=== PATIENT | female | born 1980 | race African-American/Black ===

== ENCOUNTER 2019-03-11 18:12 | Inpatient (IN) ==
[2019-03-11] MEDS ORDERED: LACTATED RINGERS 1,000 ML IV ONE (18:29)
[2019-03-11] MEDS ORDERED: cefTRIAXone 1,000 MG in SODIUM CHLORIDE 0.9% 100 ML IV STA (18:29)
[2019-03-11 19:33] LABS: Albumin 3.6 G/DL (3.4-5.0); Bilirubin,Total 0.4 MG/DL (0.2-1.0); Calcium 8.5 MG/DL (8.5-10.1); Osmolality,Calculated 274.5 MOS/KG (273-304); Total Protein 7.9 G/DL (6.4-8.3)
[2019-03-11 19:38] LABS: Basophils # 0.1 10*3/uL (0.0-0.2); Basophils % 0.6 % (0.0-0.8); Eosinophils # 0.4 10*3/uL (0.0-0.87); Eosinophils % 2.8 % (0.00-10.9); Immature Granulocytes % 0.3 %; Immature Granulocytes Absolute 0.04 #; Lymphocytes # 1.3 10*3/uL (1.4-4.0); Lymphocytes % 10.2 % (21.3-54.2); Mean Corpuscular HGB Conc 28.4 GM/DL (32-36); Mean Corpuscular Volume 75.2 FL (87-102); Monocytes % 7.6 % (1.7-12.7); Neutrophils % 78.5 % (38.7-73.9); Red Blood Count 4.12 MC/CUMM (3.8-5.5); Red Cell Distribution Width 21.2 % (9.3-17.3)
[2019-03-11 19:39] LABS: Hemoglobin 8.8 GM/DL (12.0-16.0); Platelet Count 1007 T/CUMM (130-400)
[2019-03-11 19:41] LABS: Apearance,Urine CLEAR (Clear); Bilirubin,Urine Negative (Negative); Blood, Urine Negative (Negative); Glucose,Urine (UA) Negative (Negative); Ketones,Urine Negative (Negative); Mucus,Urine Few /LPF (Occasional); Nitrite,Urine Negative (Negative); Protein,Urine Negative; RBC,Urine 2 /HPF (0-4); Squamous Epithelial Cell,Urine Occasional /HPF (0-10); Urine Color Yellow (Yellow); Urine Specific Gravity 1.021 (1.001-1.035); WBC,Urine 1 /HPF (0-6)
[2019-03-11 21:05] LABS: Basophils # 0.1 10*3/uL (0.0-0.2); Basophils % 0.5 % (0.0-0.8); Eosinophils # 0.3 10*3/uL (0.0-0.87); Eosinophils % 2.7 % (0.00-10.9); Immature Granulocytes % 0.2 %; Immature Granulocytes Absolute 0.03 #; Lymphocytes # 1.3 10*3/uL (1.4-4.0); Lymphocytes % 10.5 % (21.3-54.2); Mean Corpuscular HGB Conc 28.6 GM/DL (32-36); Mean Corpuscular Volume 75.5 FL (87-102); Mean Platelet Volume 9.9 FL (9.6-12.0); Monocytes % 8.3 % (1.7-12.7); Neutrophils % 77.8 % (38.7-73.9); Platelet Count 905 T/CUMM (130-400); Red Blood Count 3.71 MC/CUMM (3.8-5.5); Red Cell Distribution Width 20.9 % (9.3-17.3); White Blood Count 12.4 T/CUMM (4-12)
[2019-03-11] MEDS ORDERED: ONDANSETRON 4 MG/2 ML VIAL IV PRN (21:12)
[2019-03-11] MEDS ORDERED: ACETAMINOPHEN 500 MG TABLET PO STA (21:16)
[2019-03-11] MEDS: ENOXAPARIN 40 MG/0.4 ML SYRINGE SUBCUT SCH (22:56)
[2019-03-11] MEDS: SODIUM CHLORIDE 0.9% 1,000 ML IV SCH (22:57)
[2019-03-11] MEDS: cefTRIAXone 1,000 MG in SYRINGE 1 EACH IV SCH (23:04)
[2019-03-12] MEDS: ALBUTEROL/IPRATROPIUM 3 ML NEB RESP TX SCH ×3 (00:30→14:43)
[2019-03-12] MEDS: SODIUM CHLORIDE 0.9% 1,000 ML IV SCH ×3 (05:24→23:12)
[2019-03-12] MEDS: PANTOPRAZOLE 40 MG TABLET PO SCH (08:31)
[2019-03-12 09:18] LABS: % Iron Saturation 2.2 % (18-50)
[2019-03-12 09:38] LABS: Basophils # 0.1 10*3/uL (0.0-0.2); Basophils % 0.7 % (0.0-0.8); Eosinophils # 0.3 10*3/uL (0.0-0.87); Eosinophils % 4.4 % (0.00-10.9); Hematocrit 27.8 VOL% (35.7-47.0); Immature Granulocytes % 0.4 %; Immature Granulocytes Absolute 0.03 #; Lymphocytes # 1.2 10*3/uL (1.4-4.0); Lymphocytes % 15.6 % (21.3-54.2); Mean Corpuscular HGB Conc 28.4 GM/DL (32-36); Mean Corpuscular Volume 75.3 FL (87-102); Mean Platelet Volume 9.7 FL (9.6-12.0); Monocytes % 10.6 % (1.7-12.7); Neutrophils % 68.3 % (38.7-73.9); Platelet Count 832 T/CUMM (130-400); Red Blood Count 3.69 MC/CUMM (3.8-5.5); White Blood Count 7.7 T/CUMM (4-12)
[2019-03-12 09:43] LABS: Hemoglobin 7.9 GM/DL (12.0-16.0)
[2019-03-12 09:56] LABS: Hypochromasia 2+; Ovalocytes Slight; Platelet Estimate Increased
[2019-03-12] MEDS: PSEUDOEPHEDRINE 30 MG TABLET PO SCH ×3 (10:07→22:38)
[2019-03-12] MEDS: methylPREDNISolone SOD SUC 40 MG/1 ML VIAL IV SCH ×2 (10:07→16:35)
[2019-03-12] MEDS: FLUTICASONE 50 MCG NASAL SPRAY 16 GM BOTTLE BOTH NARES SCH ×2 (10:07→22:38)
[2019-03-12] MEDS ORDERED: NICOTINE 21 MG/24 HR PATCH TRANSDERM PRN (11:07)
[2019-03-12] MEDS ORDERED: LEVOFLOXACIN 750 MG TABLET PO SCH (11:30)
[2019-03-12] MEDS: CETIRIZINE 10 MG TABLET PO SCH (11:47)
[2019-03-12] MEDS: ASPIRIN EC 81 MG TABLET PO SCH (11:47)
[2019-03-12] MEDS: FERROUS SULFATE 325 MG TABLET PO SCH (22:38)
[2019-03-12] MEDS: ENOXAPARIN 40 MG/0.4 ML SYRINGE SUBCUT SCH (22:58)
[2019-03-12] MEDS: cefTRIAXone 1,000 MG in SYRINGE 1 EACH IV SCH (23:04)
[2019-03-13] MEDS: methylPREDNISolone SOD SUC 40 MG/1 ML VIAL IV SCH ×2 (01:40→16:58)
[2019-03-13] MEDS: PSEUDOEPHEDRINE 30 MG TABLET PO SCH ×4 (04:37→20:50)
[2019-03-13] MEDS: ALBUTEROL/IPRATROPIUM 3 ML NEB RESP TX SCH ×3 (07:13→19:35)
[2019-03-13 09:17] LABS: Basophils % 0.1 % (0.0-0.8); Eosinophils % 0.1 % (0.00-10.9); Hematocrit 27.5 VOL% (35.7-47.0); Immature Granulocytes Absolute 0.16 #; Lymphocytes % 12.5 % (21.3-54.2); Mean Corpuscular HGB Conc 28.4 GM/DL (32-36); Mean Corpuscular Volume 76.4 FL (87-102); Mean Platelet Volume 9.8 FL (9.6-12.0); Monocytes % 4.6 % (1.7-12.7); NRBC # 0.03 10*3/uL; Neutrophils % 80.7 % (38.7-73.9); Platelet Count 804 T/CUMM (130-400); White Blood Count 7.9 T/CUMM (4-12)
[2019-03-13 09:20] LABS: Hemoglobin 7.8 GM/DL (12.0-16.0)
[2019-03-13 09:22] LABS: Hypochromasia 2+; Microcytosis 1+; Tear Drop Cells Slight
[2019-03-13 09:23] LABS: Platelet Estimate Increased; Polychromasia Slight
[2019-03-13] MEDS: CETIRIZINE 10 MG TABLET PO SCH (10:35)
[2019-03-13] MEDS: FERROUS SULFATE 325 MG TABLET PO SCH (10:35)
[2019-03-13] MEDS: PANTOPRAZOLE 40 MG TABLET PO SCH (10:35)
[2019-03-13] MEDS: ASPIRIN EC 81 MG TABLET PO SCH (10:36)
[2019-03-13] MEDS: FLUTICASONE 50 MCG NASAL SPRAY 16 GM BOTTLE BOTH NARES SCH ×2 (10:36→20:51)
[2019-03-13] MEDS: LEVOFLOXACIN INJ 750 MG in PREMIX 1 EACH IV SCH (15:36)
[2019-03-13] MEDS: SODIUM CHLORIDE 0.9% 1,000 ML IV SCH (16:59)
[2019-03-13] MEDS: IRON SUCROSE 200 MG in SODIUM CHLORIDE 0.9% 100 ML IV SCH (18:42)
[2019-03-13] MEDS: ENOXAPARIN 40 MG/0.4 ML SYRINGE SUBCUT SCH (20:50)
[2019-03-13] MEDS ORDERED: methylPREDNISolone SOD SUC 40 MG/1 ML VIAL IV SCH (21:00)
[2019-03-13] MEDS: methylPREDNISolone SOD SUC 40 MG/1 ML VIAL IM SCH (21:51)
[2019-03-14] MEDS: ALBUTEROL/IPRATROPIUM 3 ML NEB RESP TX SCH ×2 (00:52→07:01)
[2019-03-14] MEDS: PSEUDOEPHEDRINE 30 MG TABLET PO SCH ×2 (03:22→09:05)
[2019-03-14 07:21] VITALS: BP 118/77
[2019-03-14] MEDS: ASPIRIN EC 81 MG TABLET PO SCH (09:05)
[2019-03-14] MEDS: CETIRIZINE 10 MG TABLET PO SCH (09:05)
[2019-03-14] MEDS: PANTOPRAZOLE 40 MG TABLET PO SCH (09:05)
[2019-03-14] MEDS: IRON SUCROSE 200 MG in SODIUM CHLORIDE 0.9% 100 ML IV SCH (09:09)
[2019-03-14] MEDS: FLUTICASONE 50 MCG NASAL SPRAY 16 GM BOTTLE BOTH NARES SCH (09:09)
[2019-03-14] MEDS: LEVOFLOXACIN INJ 750 MG in PREMIX 1 EACH IV SCH (09:09)
[2019-03-14] MEDS: methylPREDNISolone SOD SUC 40 MG/1 ML VIAL IM SCH (09:09)
== END 2019-03-14 11:14 | disposition home or self-care (01) | DRG 203 ==
LOC: N.EDINP 18:12 → N.ED 18:12 → SUATTDRO 21:12 → N.2W 21:52 → N.2E 03-12 17:04
PROVIDERS: ADMIT Internal Medicine; ATTEND Internal Medicine